=== PATIENT | female | born 1960 | race Caucasian/White ===

== ENCOUNTER 2022-04-18 10:31 | Day surgery (SDC) | payer OTHER ==
[2022-04-17 11:55] LABS: BASOPHILS # (AUTO) 0.1 X10'3 (0-0.2); BASOPHILS % (AUTO) 1.1 % (0-1); EOSINOPHILS # (AUTO) 0.3 X10'3 (0-0.9); EOSINOPHILS % (AUTO) 3.9 % (0-6); LYMPHOCYTES # (AUTO) 2.2 X10'3 (1.1-4.8); LYMPHOCYTES % (AUTO) 29.9 % (21-51); MEAN CORPUSCULAR HEMOGLOBIN 31.5 PG (27.0-31.0); MEAN CORPUSCULAR HGB CONC 33.8 g/dL (33.0-36.5); MEAN PLATELET VOLUME 8.1 FL (7.4-10.4); MONOCYTES # (AUTO) 0.7 X10'3 (0-0.9); MONOCYTES % (AUTO) 10.3 % (2-12); NEUTROPHILS % (AUTO) 54.8 % (42-75); PRE OP HEMATOCRIT 41.7 % (35.0-45.0); PRE OP HEMOGLOBIN 14.1 g/dL (12.0-16.0); PRE OP PLATELET COUNT 270 X10'3 (140-440); RED BLOOD COUNT 4.49 X10'6 (4.20-5.60)
[2022-04-17 12:06] LABS: ALBUMIN 3.8 G/DL (3.4-5.0); ALKALINE PHOSPHATASE 85 IU/L (46-116); BLOOD UREA NITROGEN 16 MG/DL (7-18); BUN/CREATININE RATIO 17.4 (6.6-38.0); CALCIUM 9.5 MG/DL (8.5-10.1); CHLORIDE 105 MMOL/L (99-107); CREATININE 0.92 MG/DL (0.40-0.90); PRE OP ALT 24 U/L (30-65); PRE OP ANION GAP 7 (8-16); PRE OP AST 14 U/L (10-37); PRE OP BILIRUB, TOTAL 0.4 MG/DL (0.0-1.0); PRE OP GLUCOSE 98 MG/DL (70-104); PRE OP POTASSIUM 4.2 MMOL/L (3.4-5.1); PRE OP SODIUM 141 MMOL/L (135-145); TOTAL CARBON DIOXIDE 29.5 MMOL/L (24-32); TOTAL PROTEIN 7.5 G/DL (6.4-8.2); eGFR 62 ML/MIN
[2022-04-18] VITALS (17 sets, daily range): BP systolic 122–153; BP diastolic 80–97
[~2022-04-18] VITALS: Ht 167.6 cm; Wt 89.6 kg
[~2022-04-18 10:31] MED LIST: ALOE1CAP PO; CETI-90 PO; MULT-1085 PO; ceFAZolin inj. 2,000 MG in dextrose 5%-water 100 ML IV ONE; famotidine 20mg tablet PO ONE; ringers solution, lacted 1,000 ML IV SCH
[2022-04-18] MEDS ORDERED: vancomycin 1,000mg inj ONE (12:42)
[2022-04-18] MEDS ORDERED: bacitracin 15gm ointment TP ONE (12:43)
[2022-04-18] MEDS ORDERED: midazolam 1 mg/ML 2ml injection ONE (13:52)
[2022-04-18] MEDS ORDERED: fentaNYL/PF 50MCG/1 ML 2ML syringe ONE (13:52)
[2022-04-18] MEDS ORDERED: sevoflurane 250ml liquid IH ONE (14:04)
[2022-04-18] MEDS ORDERED: ondansetron/PF 4mg/2ml inj IV PRN (14:30)
[2022-04-18] MEDS ORDERED: morphine 4 MG/ML inj SYRINge IV PRN (14:30)
[2022-04-18] MEDS ORDERED: ringers solution, lacted 1,000 ML IV SCH (14:30)
[2022-04-18] MEDS ORDERED: morphine 2 MG/ML inj. syringe IV PRN (14:30)
[2022-04-18] MEDS ORDERED: meperidine/PF 25mg/ml syringe IV PRN ×3 (14:30)
[2022-04-18] MEDS ORDERED: proCHLORperazine 10 MG/2 ml inj IV PRN (14:30)
[2022-04-18] MEDS ORDERED: ePHEDrine 50MG/ML INJ. ONE (16:00)
[2022-04-18] MEDS ORDERED: acetaminophen 1,000mg/100ml IV 100 ML IV ONE (16:00)
[2022-04-18] MEDS ORDERED: ondansetron/PF 4mg/2ml inj ONE (16:00)
[2022-04-18] MEDS ORDERED: propofol inj 20 ML IV ONE (16:00)
[2022-04-18] MEDS ORDERED: dexamethasone sod phosphate 4mg/ml inj. ONE (16:00)
--- NOTE | 2022-04-18 16:03 | NUR ---
Received from OR via [facility], accompanied by Anesthesiologist DR PRIDE and report given by Anesthesiolgist. PT PRESENTS WITH PIV 250G LEFT HAND, SPLINT AND SLING ON RIGHT ARM, VSS. Addendum: 04/18/22 at 1622 by Ara Boss RN, RN Amended: Links added.
--- NOTE | 2022-04-18 18:33 | NUR ---
PATIENT DISCHARGED FROM PACU IN STABLE CONDITION AFTER WRITTEN AND VERBAL DISCHARGE INSTRUCTIONS GIVEN. PATIENT GAVE VERBAL UNDERSTANDING OF INSTRUCTIONS GIVEN. PATIENT LEFT FACILITY VIA WHEELCHAIR WITH RN TO DAUGHTER'S PRIVATE VEHICLE Addendum: 04/18/22 at 1850 by Ara Boss RN, RN Amended: Links added.
== END 2022-04-18 18:33 | disposition home or self-care (01) ==
LOC: PAS 10:31
PROVIDERS: ATTEND Orthopaedic Surgery
DX: S52.571A Other intraarticular fracture of lower end of right radius, initial encounter for closed fracture (principal); G89.18 Other acute postprocedural pain; E66.9 Obesity, unspecified; Z68.31 Body mass index [BMI] 31.0-31.9, adult; Z79.899 Other long term (current) drug therapy; Z72.89 Other problems related to lifestyle; Z87.891 Personal history of nicotine dependence; Z98.51 Tubal ligation status; Z98.890 Other specified postprocedural states; Z88.5 Allergy status to narcotic agent; Z88.8 Allergy status to other drugs, medicaments and biological substances; W01.0XXA Fall on same level from slipping, tripping and stumbling without subsequent striking against object, initial encounter; Y93.89 Activity, other specified; Y92.89 Other specified places as the place of occurrence of the external cause; Y99.8 Other external cause status
CPT/HCPCS: 25608; 36415; 64417; 76942; 80053; 82948; 85025; 93005; C1713; J0131; J0690; J1100; J2175; J2250; J2405; J2704; J3010; J3490; J7030; J7060; J7120; Z7506; Z7508; Z7512; A4215; A4565; A4618; A6449; A7000; J3370